=== PATIENT | female | born 1990 | race Caucasian/White ===

== ENCOUNTER 2017-09-05 11:07 | Emergency (ER) | payer SELFPAY | END 2017-09-05 11:30 | disposition home or self-care (01) | LOC: ERS 11:07 | DX: J06.9 Acute upper respiratory infection, unspecified (principal); J45.909 Unspecified asthma, uncomplicated; F41.9 Anxiety disorder, unspecified | CPT/HCPCS: 99283 ==

== ENCOUNTER 2017-09-10 08:16 | Emergency (ER) | payer SELFPAY ==
--- NOTE | 2017-09-10 08:48 | RAD ---
RADIOGRAPH CHEST 2 VIEWS: HISTORY: 27-year-old female with cough and fever. FINDINGS: There is no air space density, pulmonary edema, pleural effusion, pneumothorax, or cardiomegaly. IMPRESSION: No acute cardiopulmonary findings. jn [] POS: [facility]
== END 2017-09-10 09:01 | disposition home or self-care (01) ==
LOC: ERS 08:16
DX: J06.9 Acute upper respiratory infection, unspecified (principal); J45.909 Unspecified asthma, uncomplicated; F41.9 Anxiety disorder, unspecified
CPT/HCPCS: 71046